=== PATIENT | female | born 1975 | race African-American/Black ===

== ENCOUNTER 2019-12-06 06:16 | Emergency (ER) | payer OTHER ==
[~2019-12-06] VITALS: Ht 170.2 cm; Wt 86.2 kg
[~2019-12-06 06:16] MED LIST: BACTRIM DS TAB1 EACH PO; MEDROLDOSEPACK PO
[2019-12-06 07:00] LABS: ABSOLUTE NEUTROPHILS 4.6 thou/uL (1.4-8.2); BASOPHILS 0.4 % (0.0-2.0); HEMATOCRIT 43.4 % (37.0-47.0); HEMOGLOBIN 14.1 gm/dL (12.0-15.0); LYMPHOCYTES 24.7 % (24.0-44.0); MCH 28.6 pg (26.0-34.0); MCHC 32.5 g/dL (28.0-37.0); MCV 88.1 fL (80.0-100.0); MONOCYTES 7.5 % (1.0-8.0); PLATELET COUNT 158 thou/uL (150-400); POLYS 66.4 % (36.0-66.0); RBC 4.93 mil/uL (4.20-5.00); RDW 12.9 % (10.5-14.5); WBC 6.9 thou/uL (4.0-11.0)
[2019-12-06 07:20] LABS: ALBUMIN 3.4 g/dL (3.4-5.0); ANION GAP 11 mmol/L (7-16); BUN 12 mg/dL (7-18); CALCIUM 8.7 mg/dL (8.5-10.1); CHLORIDE 104 mmol/L (98-107); CO2 25 mmol/L (21-32); CREATININE 0.6 mg/dL (0.6-1.0); GLUCOSE 118 mg/dL (74-106); SGOT 44 U/L (15-37); SGPT 40 U/L (30-65); SODIUM 140 mmol/L (136-145); TOTAL BILIRUBIN 0.5 mg/dL (0.2-1.0); TOTAL PROTEIN 8.4 g/dL (6.4-8.2); TROPONIN-I <0.06 ng/mL (<0.06)
[2019-12-06 07:28] LABS: POTASSIUM 2.6 mmol/L (3.5-5.1)
--- NOTE | 2019-12-06 08:38 | EKG ---
[facility] [place] [address] ELECTROCARDIOGRAM REPORT Name: MARCOS BO Room #: REG [facility]#: [id number] Admission: 12/06/19 Attend Phys: Discharge: Date of : 77 Report #: [id number] THIS REPORT FOR: cc: ALEJANDRA - Fiordaliza family physician/PCP ALEJANDRA - Fiordaliza family physician/PCP Addison Hancock MD [facility] THIS REPORT FOR: //name// [facility] ED Test Date: 2019-12-06 Test Time: 06:37:14 Pat Name: MARCOS BO Department: Room: Gender: F Therapeutic Consultant: Sabrina : 1975 Requested By: Rhianna Gray Order Number: [id number] MD: Addison Hancock Measurements Intervals [place] Rate: 127 P: 37 NM: 146 QRS: -14 QRSD: 97 T: 108 QT: 320 QTc: 466 Interpretive Statements Sinus tachycardia Probable left atrial enlargement LVH with secondary repolarization abnormality Compared to ECG 09/29/2006 13:35:22 ST segment abnormality is now present Electronically Signed On 12-06-2019 8:38:39 CDT by Addison Hancock [email or web address] <ELECTRONICALLY SIGNED> By: Addison Hancock MD, [facility] 12/06/19 0838 0637 0637 Addison Hancock MD, [facility] /EPI
[2019-12-06] MEDS ORDERED: TAPAZOLE10 MG PO (12:43)
[2019-12-06] MEDS ORDERED: LEVAQUIN 500 M500 M1 PO (12:43)
[2019-12-06] MEDS ORDERED: POTASSIUM20 PO (12:43)
[2019-12-06 13:15] VITALS: BP 164/106
== END 2019-12-06 13:15 | disposition home or self-care (01) ==
LOC: ER 06:16
PROVIDERS: Emergency Medicine
DX: J18.9 Pneumonia, unspecified organism (principal); E05.90 Thyrotoxicosis, unspecified without thyrotoxic crisis or storm; E87.6 Hypokalemia; Z20.828 Contact with and (suspected) exposure to other viral communicable diseases; R51 Headache; Z98.84 Bariatric surgery status

== ENCOUNTER 2020-08-14 13:35 | Inpatient (IN) | payer OTHER ==
[~2020-08-14] VITALS: Ht 170.2 cm; Wt 83.9 kg
--- NOTE | ~2020-08-14 | O ---
[facility] [place] [address] OPERATIVE REPORT Name: MARCOS BO Room #: 456-P ADM IN M.R.#: [id number] Admission: 08/14/20 Attend Phys: Mario Valdez MD Discharge: Date of : 77 Report #: [id number] THIS REPORT FOR: cc: FAM - Family physician unknown FAM - Family physician unknown Bala Briceno MD ~ DATE OF SERVICE: 08/15/2020 PREOPERATIVE DIAGNOSIS: Right knee abscess. POSTOPERATIVE DIAGNOSIS: Right knee abscess. OPERATION: Incision and drainage of right knee abscess. SURGEON: Bala Briceno MD ANESTHESIA: General. ESTIMATED BLOOD LOSS: Minimal. SPECIMEN: Abscess fluid for culture and sensitivity. DESCRIPTION OF PROCEDURE: After informed consent was obtained, the patient was brought to the operating room and placed supine. SCDs were placed and working, preoperative antibiotics were administered, general anesthesia was induced. The right leg was prepped and draped in a usual sterile fashion. I made a 2 cm incision over the area of fluctuance in the medial right knee. Immediately, pus was expressed. This was cultured. Loculations were then broken up bluntly. The area was then copiously irrigated with normal saline and packed with sterile gauze. Sterile dressings were applied. COMPLICATIONS: None. DISPOSITION: The patient was taken to recovery in satisfactory condition. By: [id number] [id number] Bala Briceno MD /nt
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
[~2020-08-14 13:35] MED LIST changes: +LEVAQUIN 500 M500 M1 PO; +POTASSIUM20 PO; +TAPAZOLE10 MG PO
[2020-08-14 13:38] VITALS: BP 158/91
[2020-08-14 14:25] LABS: ABSOLUTE NEUTROPHILS 6.4 thou/uL (1.4-8.2); BASOPHILS 0.4 % (0.0-2.0); EOSINOPHILS 0.7 % (0.0-3.0); HEMATOCRIT 38.3 % (37.0-47.0); HEMOGLOBIN 13.2 gm/dL (12.0-15.0); MCH 29.4 pg (26.0-34.0); MCHC 34.4 g/dL (28.0-37.0); MCV 85.2 fL (80.0-100.0); MONOCYTES 15.1 % (1.0-8.0); PLATELET COUNT 205 thou/uL (150-400); POLYS 69.8 % (36.0-66.0); RBC 4.49 mil/uL (4.20-5.00); RDW 13.9 % (10.5-14.5); WBC 9.1 thou/uL (4.0-11.0)
[2020-08-14 14:38] LABS: CALCIUM 8.9 mg/dL (8.5-10.1); CREATININE 0.5 mg/dL (0.6-1.0)
[2020-08-14 14:40] LABS: POTASSIUM 3.7 mmol/L (3.5-5.1)
[2020-08-14 14:44] LABS: ALBUMIN 2.7 g/dL (3.4-5.0); DIRECT BILIRUBIN 0.4 mg/dL (<0.1-0.2); TOTAL BILIRUBIN 1.6 mg/dL (0.2-1.0); TOTAL PROTEIN 8.6 g/dL (6.4-8.2)
[2020-08-14 15:44] LABS: URINE BILIRUBIN NEGATIVE (Negative); URINE BLOOD TRACE (Negative); URINE CLARITY SL CLOUDY; URINE COLOR YELLOW; URINE GLUCOSE-RANDOM* NEGATIVE (Negative); URINE KETONES TRACE (Negative); URINE LEUKOCYTES-REFLEX NEGATIVE (Negative); URINE NITRITE-REFLEX NEGATIVE (Negative); URINE PROTEIN (DIPSTICK) NEGATIVE (Negative); URINE UROBILINOGEN >= 8.0 E.U./dl (0.2-1.0)
[2020-08-14 18:19] VITALS: BP 138/74
[2020-08-14 19:20] VITALS: BP 143/79
[2020-08-15 00:03] VITALS: BP 155/99
--- NOTE | 2020-08-15 00:39 | NUR ---
ASSUMED CARE OF PT FROM ED AT 1830HRS. PT IS AOX4 AND LETS NEEDS BE KNOWN. PT IS UP AD WALTER. PT WAS ORIENTED TO THE UNIT AND HER ROOM. PT WAS ABLE TO ANSWER ALL ADMISSION RELATED QUESTIONS AND SIGN OWN CONSENTS. PT REPORTED RLE PAIN AND PRNS WERE GIVEN. PT REPORTED NAUSEA AND HAD 3X EMISIS THIS EVENING. PRN ANTIEMETC GIVEN. PT PLACED NPO AT MIDNIGHT FOR POSSIBLE PROCEDURE IN TH AM. VSS AND NO S/S OF ACUTE DISTRESS. WILL CONTINUE TO MONITOR.
[2020-08-15 05:43] LABS: HEMATOCRIT 33.7 % (37.0-47.0); MCH 28.1 pg (26.0-34.0); MCHC 32.6 g/dL (28.0-37.0); RBC 3.92 mil/uL (4.20-5.00); RDW 13.6 % (10.5-14.5); WBC 7.3 thou/uL (4.0-11.0)
[2020-08-15 06:26] LABS: ALBUMIN 2.3 g/dL (3.4-5.0); CALCIUM 8.6 mg/dL (8.5-10.1); CREATININE 0.4 mg/dL (0.6-1.0); POTASSIUM 3.5 mmol/L (3.5-5.1); TOTAL BILIRUBIN 1.5 mg/dL (0.2-1.0); TOTAL PROTEIN 7.4 g/dL (6.4-8.2)
--- NOTE | 2020-08-15 11:50 | NUR ---
ASSUMED PT CARE THIS AM. PT A&OX4. PLEASANT AND ABLE TO MAKE NEEDS KNOWN. WITH REDNESS AND SWELLING TO BEHIND THE RIGHT KNEE, MARKED FROM REPAIR TECH. PATIENT REMAINS CONTINENT AND IS UP INDEPENDENTLY TO THE BATHROOM. PATIENT ON ROOM AIR. PAIN REPORTED IN THE KNEE, GAVE PAIN MEDS AND RESPONDED WELL. IV PATENT, FLUIDS INFUSING.
--- NOTE | 2020-08-15 13:57 | NUR ---
PT ADMITTED RELATED TO CELLULITIS AND ABSCESS. CM REVIEWED CHART AND SPOKE WITH CARE TEAM. CM MET WITH PT AT BEDSIDE THIS DAY. PT APPEARED TO BE A&O X4. CM ROLE INTRODCUED. PT INDICATED SHE LIVES IN A TOWNHOUSE WITH 1 STEP TO ENTER AND 14 STEPS TO SECOND STORY BEDROOMS. PT'S THREE CHILDREN 23,14, 12, AND THREE GRANDCHILDREN RESIDE WITH HER. SHE INDICATED THAT SHE HAD BEEN INDEPEDNENT WITH GAIT AND ADLS GASATERIA ATTENDANT. PT INDICATED HER PCP IS DR. ARGUETA IN [place]. PT IS PATIENT PAY BUT SHE INDICATED THAT SHE HAS A [place] MEDICAID APPLICATION PENDING. PT INDICATED THAT SHE WILL LIKELY BE ABLE TO PAY FOR MEDICATIONS UPON DC LONG THEY AREN'T TOO EXPENSIVE. PT IS TO HAVE AN I&D OF THE L KNEE THIS DAY. PT IS ON IV VANC. PT INDICATED SHE PLANS TO RETURN HOME ONCE MEDICALLY STABLE. CM TO FOLLOW INDICATED WITH DC PLANNING.
--- NOTE | 2020-08-15 14:56 | NUR ---
spoke with physical therapy who reports patient would benefit from skilled care at discharge. Called and left message with .
[2020-08-15 16:30] VITALS: BP 165/95
[2020-08-15 19:46] VITALS: BP 160/78
--- NOTE | 2020-08-16 05:15 | NUR ---
ASSUMED CARE OF PT FROM PACU AT 1920HRS. PT IS AOX4 AND LETS NEEDS BE KNOWN. PT IS UP AD WALTER. IV ABX CONTINUED. PT REPORTED PAIN AND WAS TREATED WITH PRN PAIN MEDS. ASSESSMENT CHARTED. RLE DRESSING REINFORCED DUE TO SATURATION. PT WAS ABLE TO GET COMFORTABLE AND SLEEP PART OF THE SHIFT. VSS AND NO S/S OF ACUTE DISTRESS. WILL CONTINUE TO MONITOR.
[2020-08-16 09:09] VITALS: BP 158/76
--- NOTE | 2020-08-16 12:04 | NUR ---
Received awake on bed. Due medications given as prescribed, able to swallow meds w/o difficulty. On room air. Vital signs stable. On MS, not on telemetry; no complains and signs of chest pain, crushing sensation and heaviness. Assisted in ADLs. On regular diet- tolerating well; no nausea, no vomiting and no abdominal pain. Continent of bowel and bladder, able to go to the toilet with standby assist. With NS at 80cc/hr infusing well at R hand- on IV antibiotics. S/P I&D of R LE abscess- dressing in place. Complained of pain, due PRN pain meds given as prescribed. To continue monitoring patient. IV infiltrated; IV nurse informed- pt difficult stick.
--- NOTE | 2020-08-16 16:13 | NUR ---
PT HAD I&D YESTERDAY. PT STILL ON IV VANC. CARE TEAM INDICATED THAT PT WILL LIKELY BE MEDICALLY STABLE TO DC OVER THE WEEKEND. PT INDICATED SHE SHOULD BE ABLE TO PAY FOR ANY NEW MEDICATIONS UPON DC. PT'S FAMILY IS ABLE TO ASSIST WITH WC UPON DC. PT WILL NEED WC SUPPLIES UP DC. CM FOLLOWING SHOULD ANY DC NEEDS ARISE.
[2020-08-16 19:41] VITALS: BP 175/96
--- NOTE | 2020-08-17 02:45 | NUR ---
PT CARE ASSUMED WITH PT IN BED WITH FRIEND AT BEDSIDE.PT IS A/OX4.PT IS UP WITH STANDBY ASSIST TO THE BATHROOM.PT C/O PAIN ON LT LE AND DILAUDID GIVEN FOR PAIN MANAGEMENT.DRESSING ON RT KNEE REINFORCED WITH KERLIX AND GAUZE.IV ON RT FA WITH NS AT 80CC/HR.WILL CONTINUE TO MONITOR PER POC
[2020-08-17 03:35] VITALS: BP 156/80
[2020-08-17 08:30] VITALS: BP 181/104
[2020-08-17] MEDS ORDERED: KEFLEX750 MG PO (09:05)
[2020-08-17] MEDS ORDERED: NORCO5 PO (09:05)
[2020-08-17 10:00] VITALS: BP 142/79
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
[2020-08-17 17:44] VITALS: BP 153/92; BP 181/104
[2020-08-17 19:51] VITALS: BP 165/102
[2020-08-18 02:56] VITALS: BP 169/97
--- NOTE | 2020-08-18 04:40 | NUR ---
Pt. rested quietly at intervals during the night when checked on during frequent rounds. Bp elevated during the shift and Dr. Meyers called and notified. New orders for one time po dose of clonodine (see cpoe). See VS. She c/o pain to her right leg and pain meds given (see emar) with some relief noted. Dressing to right thigh area is dry and intact.
[2020-08-18 08:18] VITALS: BP 185/98
--- NOTE | 2020-08-18 10:19 | NUR ---
ASSUMED PT CARE THIS AM. PATIENT BLOOD PRESSURE WAS ELEVATED WITH FIRST MORNING VITALS, RETOOK BLOOD PRESSURE AFTER GIVING BP MED AND BP DECREASED. REPORTS PAIN IN THE RIGHT LOWER EXTREMITY, GAVE PAIN MEDS PER EMAR. IV PATENT, FLUIDS INFUSING WELL. ON ROOM AIR. TOOK MEDS WITHOUT ISSUE. PATIENT UP INDEPENDENTLY, ABLE TO MAKE NEEDS KNOWN. HYDRATION ENCOURAGED.
[2020-08-18] MEDS ORDERED: PRINIVIL20 MG PO (11:35)
[2020-08-18 12:36] VITALS: BP 145/86
== END 2020-08-18 13:37 | disposition home or self-care (01) | DRG 602 ==
LOC: ER 13:35 → EROBS 15:45 → 4W 19:02
PROVIDERS: Nurse Practitioner; ADMIT Hospitalist; ATTEND Hospitalist
PROC: 0H9KXZZ Drainage of Right Lower Leg Skin, External Approach (ICD-10-PCS; principal; 2020-08-15)
DX: L03.115 Cellulitis of right lower limb (principal); E43 Unspecified severe protein-calorie malnutrition; D64.9 Anemia, unspecified; E05.00 Thyrotoxicosis with diffuse goiter without thyrotoxic crisis or storm; L02.415 Cutaneous abscess of right lower limb; Z20.822 Contact with and (suspected) exposure to COVID-19; Z98.84 Bariatric surgery status; Z86.718 Personal history of other venous thrombosis and embolism; Z79.899 Other long term (current) drug therapy; Z68.29 Body mass index [BMI] 29.0-29.9, adult
CPT/HCPCS: 10047; 50010; 50386; 57091

== ENCOUNTER 2021-03-12 06:23 | Inpatient (IN) | payer OTHER ==
[~2021-03-12] VITALS: Ht 170.2 cm; Wt 82.9 kg
[2021-03-12] VITALS (11 sets, daily range): BP systolic 102–164; BP diastolic 67–117
[~2021-03-12 06:23] MED LIST changes: +CARDIZEM CD120 MG PO; +ELIQUIS5 MG PO; +KEFLEX750 MG PO; +METHIMAZOLE10 MG PO; +METOPROLOL SUCC25 M1 PO; +NORCO5 PO; +PRINIVIL20 MG PO
[2021-03-12 06:56] LABS: ABSOLUTE NEUTROPHILS 7.6 thou/uL (1.4-8.2); BASOPHILS 0.3 % (0.0-2.0); EOSINOPHILS 0.1 % (0.0-3.0); HEMATOCRIT 38.3 % (37.0-47.0); HEMOGLOBIN 12.6 gm/dL (12.0-15.0); LYMPHOCYTES 11.2 % (24.0-44.0); MCH 28.3 pg (26.0-34.0); MCHC 32.8 g/dL (28.0-37.0); MCV 86.3 fL (80.0-100.0); MONOCYTES 7.8 % (1.0-8.0); PLATELET COUNT 197 thou/uL (150-400); POLYS 80.6 % (36.0-66.0); RBC 4.45 mil/uL (4.20-5.00); RDW 13.3 % (10.5-14.5); WBC 9.4 thou/uL (4.0-11.0)
[2021-03-12 07:12] LABS: CALCIUM 8.7 mg/dL (8.5-10.1); CREATININE 0.3 mg/dL (0.6-1.0); MAGNESIUM 1.4 mg/dL (1.8-2.4)
[2021-03-12 07:13] LABS: POTASSIUM 3.8 mmol/L (3.5-5.1)
--- NOTE | 2021-03-12 17:14 | EKG ---
[place] [address] [facility] [place] [address] ELECTROCARDIOGRAM REPORT Name: MARCOS BO Room #: 170-10 ADM IN M.R.#: [id number] Admission: 03/12/21 Attend Phys: Mario Valdez MD Discharge: Date of : 77 Report #: [id number] [facility] ED Test Date: 2021-03-12 Test Time: 06:30:31 Pat Name: MARCOS BO Department: Room: 170 10 Gender: F Milling Supervisor: : 1975 Requested By: Shekhar De Los Santos Order Number: [id number] : Xavier Ramirez Measurements Intervals [place] Rate: 184 P: LA: QRS: -9 QRSD: 91 T: 106 QT: 287 QTc: 503 Interpretive Statements Atrial fibrillation with rapid V-rate LVH with secondary repolarization abnormality Compared to ECG 09/25/2020 20:26:45 Left ventricular hypertrophy now present Early repolarization now present Sinus rhythm no longer present Electronically Signed On 03-12-2021 17:14:20 RELIGIOUS LEADER by Xavier Ramirez [email or web address] <ELECTRONICALLY SIGNED> By: Xavier Ramirez MD, [facility] 03/12/21 1714 9 9 Xavier Ramirez MD, [facility] /EPI
--- NOTE | 2021-03-12 17:14 | EKG ---
[address] [address] ELECTROCARDIOGRAM REPORT Name: MARCOS BO Room #: 170-10 ADM IN M.R.#: [id number] Admission: 03/12/21 Attend Phys: Mario Valdez MD Discharge: Date of : 77 Report #: [id number] [facility] ED Test Date: 2021-03-12 Test Time: 06:59:32 Pat Name: MARCOS BO Department: Room: 170 10 Gender: F Merchandise Buyer: : 1975 Requested By: Shkehar De Los Santos Order Number: [id number] MD: Xavier Ramirez Measurements Intervals [place] Rate: 162 P: CT: QRS: -8 QRSD: 89 T: 103 QT: 317 QTc: 521 Interpretive Statements Atrial fibrillation Probable LVH with secondary repol abnrm Compared to ECG 03/12/2021 06:30:31 No significant change Electronically Signed On 03-12-2021 17:14:38 COUNTER CUTTER by Xavier Ramirez [email or web address] <ELECTRONICALLY SIGNED> By: Xavier Ramirez MD, [facility] 03/12/21 1714 0659 Xavier Ramirez MD, [facility] /EPI
[2021-03-13 03:31] VITALS: BP 144/70
--- NOTE | 2021-03-13 03:36 | NUR ---
Admission history and assessments updated. Care plan initiated. Patint remains in Atrial fibrillation, rate variable 80-120's. Continues on Cardizem drip at 5 mg/HR. Poor sleep last 2 days, orders received for Melatonin. Blood pressure stable. Gait steady up to [facility].
[2021-03-13 04:45] VITALS: BP 128/86
[2021-03-13 05:55] LABS: HEMATOCRIT 35.8 % (37.0-47.0); HEMOGLOBIN 11.9 gm/dL (12.0-15.0); MCH 28.9 pg (26.0-34.0); MCHC 33.1 g/dL (28.0-37.0); MCV 87.3 fL (80.0-100.0); RBC 4.1 mil/uL (4.20-5.00); RDW 12.9 % (10.5-14.5); WBC 5.9 thou/uL (4.0-11.0)
[2021-03-13 06:14] LABS: CALCIUM 8.6 mg/dL (8.5-10.1); CREATININE 0.5 mg/dL (0.6-1.0); POTASSIUM 3.2 mmol/L (3.5-5.1)
[2021-03-13 07:48] VITALS: BP 145/93
--- NOTE | 2021-03-13 11:12 | NUR ---
INITIAL ASSESSMENT: SW reviewed chart and spoke with nursing and attending physician. Pt was admitted from home due to A-fib with RVR. Pt with hx HTN/Asthma/Graves diseaseo. Pt is on cardizem gtt. Pt to have cardioversion today. SW met with pt at bedside. Introduced role of SW. Pt is alert/orientated x 4. Pt reports she lives at home with family. Prior to admission, pt was independent with ADLs. No use of DME. Pt does have an albuterol inhaler. No hx of services or post-acute placement. Pt's PCP is Dr. Elli Sanz. Pt states that she has been out of meds for several weeks and was unable to get into her PCP's office for prescription refills. Pt will discharge home when medically stable. SW is following to assist as needed with discharge planning.
[2021-03-13 11:23] VITALS: BP 128/95
--- NOTE | 2021-03-13 13:44 | NUR ---
ORDERS RECEIVED FOR EVAL AND TREAT. Pt IS UP AD WALTER. ENTERED ROOM AND Pt AMBULATING AROUND THE BED WITHOUT DIFFICULTY. SPOKE WITH Pt WHO STATES SHE IS HAVING NO DIFFICULTY WITH MOBILITY, BALANCE OR STRENGTH AND IS DECLINING A FORMAL P.T. EVAL. Pt APPEARS SAFE FOR HOME WHEN MEDICALLY CLEAR.
[2021-03-13 16:09] VITALS: BP 148/99
--- NOTE | 2021-03-13 17:47 | NUR ---
ASSUMED PATIENT CARE AT 0700. A/O X4. C/O CHEST PRESURE. NO N/V. AFIB ON MONITOR. WILL HAVE CARDIOVER IN AM.
[2021-03-13 19:20] VITALS: BP 131/89
--- NOTE | 2021-03-13 19:48 | NUR ---
PT REQUESTING PAIN MEDICATION OTHER THAN TYLENOL FOR MIGRAINE, SORE THROAT AND CONTINUED CHEST PRESSURE. PT REPORTED TYLENOL IS LIKE SKITTLES. PT FROWNING, BUT PLESANT, DRY COUGH, CL LUNGS, IRREG HR, BLE EDEMA. INDEP WITH ADLS. VERBALIZED WILL CALL FOR ASSISTANCE. PT REPORTED NOT SLEEPING FOR 3 DAYS JANN PROVIDE PRN FOR SLEEP.
[2021-03-14 00:07] VITALS: BP 144/94
--- NOTE | 2021-03-14 02:53 | NUR ---
HR INCREASING INTERMITTENTLY TO 130'S AND BACK TO 117 AND 90'S. PROVIDER DRIVER UTILITY WORKER UPDATED. WILL CALL CARDIOLOGY IF CONSISTENTLY HIGHER THAN 120.
[2021-03-14 03:23] VITALS: BP 154/110
--- NOTE | 2021-03-14 03:28 | NUR ---
HR REMAINING ABOVE 120'S CARDIOLOGY CALLED.
--- NOTE | 2021-03-14 05:07 | NUR ---
ORDERS RECEIVED FROM CARDIOLOGY, IV LOPRESSOR X 1, GIVE AM PROPANOLOL AND CARDIZEM EARLY.
--- NOTE | 2021-03-14 05:27 | NUR ---
PT REPORTED SHE AWAKENED TO A DREAM THAT SHE WAS FALLING AND BUMPED HERSELF ON THE SIDE RAIL AND THEN HAD A COUGHING FIT. PT REQUESTED PRN INHALER. PROVIDER CONTACTED AND ORDER RECEIVED.
[2021-03-14 07:24] VITALS: BP 151/105
[2021-03-14] MEDS ORDERED: ELIQUIS5 MG PO (08:52)
[2021-03-14] MEDS ORDERED: DILTIAZEM 24HR180 M1 PO (08:52)
--- NOTE | 2021-03-14 09:19 | TEE ---
[facility] [place] [address] TRANSESOPHAGEAL ECHOCARDIOGRAM Name: MARCOS BO Room #: 358-P ADM IN M.R.#: [id number] Admission: 03/12/21 Attend Phys: Mario Valdez MD Discharge: Date of : 77 Report #: [id number] THIS REPORT FOR: cc: FAM - Family physician unknown FAM - Family physician unknown Xavier Ramirez MD [facility] ~ APPROVED REPORT Study performed: 03/14/2021 08:01:08 EXAM: Comprehensive 2D, Doppler, and color-flow Echocardiogram Patient Location: In-Patient Room #: 358 Status: routine BSA: 1.94 HR: 108 bpm BP: 137/96 mmHg Rhythm: Atrial Fibrillation Other Information Study Quality: Good Indications Atrial Fibrillation Echo Enhancing Agent Indication: Rule out Shunt Agent(s) / Amount(s) Used: Agitated Saline 7 cc Procedure After obtaining informed consent, patient underwent transesophageal echo in the [employer]. Type of Sedation : Conscious Sedation Sedation was administered by Nurse. Sedation start time: 812 Case end Time: 817 Sedation was achieved intravenously with: Versed (4mg) Fentanyl (100mcg) Transesophageal probe was inserted and advanced into esophagus without difficulty by Xavier Ramirez MD. Echo enhancement indication: R/O Septal defect. Echo enhancement agent administered: Agitated Saline The SUKHDEEP was performed without complications. Synchronized Cardioversion acheived with 150 Joules after 1 [facility] [address] [address] TRANSESOPHAGEAL ECHOCARDIOGRAM Name: MARCOS BO Room #: 358-P ADM IN M.R.#: [id number] Admission: 03/12/21 Attend Phys: Mario Valdez MD Discharge: Date of : 77 Report #: [id number] attempt(s). Rhythm following Synchronized Cardioversion: Normal Sinus Rhythm Throughout the procedure, the blood pressure, pulse oximetry, cardiac rhythm, and rate were monitored. The patient tolerated the procedure without adverse effects. Recovery from conscious sedation was uneventful and vital signs were stable. Left Ventricle The left ventricle is normal size. There is normal left ventricular wall thickness. Left ventricular ejection fraction is moderately decreased. LVEF is 50%. Right Ventricle The right ventricle is normal size. The right ventricular systolic function is normal. Atria Left atrium is dilated. Injection of contrast documented no interatrial shunt. Right atrium is dilated. Aortic Valve The aortic valve is normal in structure. Trace aortic regurgitation. There is no aortic valvular stenosis. Mitral Valve The mitral valve is normal in structure. Mild mitral regurgitation. No evidence of mitral valve stenosis. Tricuspid Valve The tricuspid valve is normal in structure. Mild tricuspid regurgitation. Pulmonic Valve The pulmonary valve is normal in structure. There is no pulmonic valvular regurgitation. Great Vessels The aortic root is normal in size. Pericardium There is no pericardial effusion. <Conclusion> Consent was obtained Timeout performed [facility] [address] [place] [address] TRANSESOPHAGEAL ECHOCARDIOGRAM Name: MARCOS BO Room #: 358-P [facility] IN .R.#: [id number] Admission: 03/12/21 Attend Phys: Mario Valdez MD Discharge: Date of : 77 Report #: [id number] After appropriate sedation esophageal probe was advanced without difficulty Left atrial appendage, small size, no obvious mass or clot detected Normal atrial size Normal left ventricle size/wall thickness ejection fraction 50% Normal right ventricle size/function Normal aortic/mitral valve structure and function Mild tricuspid valve insufficiency No evidence of ASD/VSD by color flow/Doppler study No pericardial effusion Normal aortic root size Aorta no significant calcification detected Patient was a successfully cardioverted to sinus rhythm after 150 J in a biphasic mode Patient tolerated procedure well Twelve-lead ECG pending <ELECTRONICALLY SIGNED> By: Xavier Ramirez MD, FACC 03/14/21918 8 8 Xavier Ramirez MD, FACC /INF
[2021-03-14] MEDS ORDERED: METHIMAZOLE10 MG PO (10:00)
[2021-03-14 10:21] VITALS: BP 151/105
[2021-03-14 10:53] LABS: CALCIUM 8.9 mg/dL (8.5-10.1); CREATININE 0.5 mg/dL (0.6-1.0); POTASSIUM 3.8 mmol/L (3.5-5.1)
--- NOTE | 2021-03-14 11:29 | NUR ---
PATIENT HAD CARDIOVER THIS AM. NSR ON MONITOR. DC TO HOME NOW.
--- NOTE | 2021-03-14 13:21 | NUR ---
DISCHARGE NOTE: SW reviewed chart and spoke with nursing and attending physician. Pt is medically stable for discharge home today. Pt discharged prior to SW visit. No discharge needs identified. Pt had transportation home. Case closed.
--- NOTE | 2021-03-15 07:04 | EKG ---
[address] [place] [address] ELECTROCARDIOGRAM REPORT Name: MARCOS BO Room #: 358-[facility] IN ..#: [id number] Admission: 03/12/21 Attend Phys: Mario Valdez MD Discharge: 03/14/21 Date of : 77 Report #: [id number] [facility] Test Date: 2021-03-14 Test Time: 08:53:54 Pat Name: MARCOS BO Department: Room: 358 Gender: F Cytology Supervisor: FSCHWALDEBBI : 1975 Requested By: Xavier Ramirez Order Number: [id number] MD: Xavier Ramirez Measurements Intervals [place] Rate: 68 P: 2 [place]: 159 QRS: -16 QRSD: 100 T: 114 QT: 445 QTc: 474 Interpretive Statements Sinus rhythm Probable left atrial enlargement LVH with secondary repolarization abnormality Compared to ECG 03/12/2021 06:59:32 Atrial fibrillation no longer present Electronically Signed On 03-15-2021 7:03:55 FAMILY PRACTICE PHYSICIAN ASSISTANT by Xavier Ramirez [email or web address] <ELECTRONICALLY SIGNED> By: Xavier Ramirez MD, [facility] 03/15/21702 2 2 Xavier Ramirez MD, [facility] /EPI
== END 2021-03-14 11:40 | disposition home or self-care (01) | DRG 310 ==
LOC: ER 06:23 → 3W 08:46 → EROBS 08:46 → 3W 18:43
PROVIDERS: Nurse Practitioner; Student in an Organized Health Care Education/Training Program; ADMIT Hospitalist; ATTEND Hospitalist
PROC: 5A2204Z Restoration of Cardiac Rhythm, Single (ICD-10-PCS; principal; 2021-03-14)
PROC: B24BZZ4 Ultrasonography of Heart with Aorta, Transesophageal (ICD-10-PCS; principal; 2021-03-14)
DX: I48.91 Unspecified atrial fibrillation (principal); Z79.01 Long term (current) use of anticoagulants; E03.9 Hypothyroidism, unspecified; Z20.822 Contact with and (suspected) exposure to COVID-19; I10 Essential (primary) hypertension; E87.6 Hypokalemia; E05.00 Thyrotoxicosis with diffuse goiter without thyrotoxic crisis or storm; J45.909 Unspecified asthma, uncomplicated
CPT/HCPCS: 10879